=== PATIENT | male | born 1990 | race Caucasian/White ===

== ENCOUNTER 2020-10-12 22:32 | Emergency (ER) | payer OTHER ==
[~2020-10-12] VITALS: Ht 182.9 cm; Wt 75.0 kg
--- NOTE | 2020-10-12 23:09 | ED.ADGEN ---
Past Medical History Past Surgical History: No Surgical History Smoking Status: Never Smoker Alcohol Use: Occasionally General Adult EDM: Chief Complaint: DIZZY/LIGHT HEADED HPI: HPI: Patient is a 30 year old male coming in for near syncopal episode while at a sporting event. Patient states he had been standing in the bleachers most the time he drinks a few beers when he started to feel little lightheaded. Went to sit down and had episode of blurred vision and faintness. Never passed out or lost consciousness. The medical aid personnel were nearby assessing other patient with a assessed him and convince him to come to the ER via EMS for further evaluation. Was given a 500 mL normal saline in route via EMS and states he feels back to normal now. Denies any past medical history. Has not had any chest pain. Has a history of vasovagal syncope in the past. No family history of sudden or cardiac disease. Review of Systems: Review of Systems: All other systems within normal limits except for as noted in the HPI Allergies: Allergies: Allergies Coded Allergies Type Severity Reaction Last Updated Verified No Known Drug Allergies 10/12/20 No Physical Exam: PE: Constitutional: Well developed, well nourished, no acute distress, non-toxic appearance. [] HENT: Normocephalic, atraumatic, bilateral external ears normal, nose normal. [] Eyes: PERRLA, conjunctiva normal, no discharge. [] Neck: No rigidity, supple, no stridor. [] Cardiovascular: Regular rate and rhythm, brisk cap refill [] Lungs & Thorax: Non labored symmetric respirations, no tachypnea or respiratory distress [] Abdomen: Soft, nondistended, no tenderness, no pulsatile masses. Skin: Warm, dry, no erythema, no rash. [] Back: Unremarkable Extremities: No deformities, range of motion grossly intact, no lower extremity edema [] Neurologic: Alert and oriented X 3, no focal deficits noted. [] Psychologic: Affect normal, judgement normal, mood normal. [] Current Patient Data: Vital Signs: Vital Signs Date Time Temp Pulse Resp B/P (MAP) Pulse Ox O2 Delivery O2 Flow Rate FiO2 10/12/20 22:47 97.7 61 12 118/58 100 Room Air 97.7 EKG: EKG: Sinus rhythm, heart rate 53 bpm, no ST elevation or depression, normal axis [] Heart Score: C/O Chest Pain: No Risk Factors: Risk Factors: DM, Current or recent (<one month) smoker, HTN, HLP, family history of CAD, obesity. Risk Scores: Score 0 - 3: 2.5% MACE over next 6 weeks - Discharge Home Score 4 - 6: 20.3% MACE over next 6 weeks - Admit for Clinical Observation Score 7 - 10: 72.7% MACE over next 6 weeks - Early Invasive Strategies Radiology/Procedures: Radiology/Procedures: [] Course & Med Decision Making: Course & Med Decision Making Pertinent Labs and Imaging studies reviewed. (See chart for details) [] Dragon Disclaimer: Dragon Disclaimer: This electronic medical record was generated, in whole or in part, using a voice recognition dictation system. Departure Departure Impression: Primary Impression: Near syncope Disposition: 01 HOME / SELF CARE / HOMELESS Condition: STABLE Patient Instructions: Near-Syncope JUNIOR GIBBONS MD Oct 12, 2020 23:09
[2020-10-13 00:17] VITALS: BP 113/55
--- NOTE | 2020-10-14 02:02 | EKG ---
[facility] [address] [place] [id number] Test Date: 2020-10-12 Test Time: 22:48:34 Pat Name: BRITTA GILLIAM Department: Room: Gender: M [employer]ing [employer]: : 1990 Requested By: JUNIOR GIBBONS Order Number: [id number] Reading MD: Measurements Intervals [place] Rate: 53 P: 43 IN: 196 QRS: 72 QRSD: 114 T: 33 QT: 408 QTc: 385 Interpretive Statements SINUS RHYTHM ATRIAL PREMATURE COMPLEX(ES) INCOMPLETE RIGHT BUNDLE BRANCH BLOCK OTHERWISE NORMAL ECG RI6.02 No previous ECG available for comparison
== END 2020-10-13 00:15 | disposition home or self-care (01) ==
LOC: ER 22:32
DX: R55 Syncope and collapse (principal)
CPT/HCPCS: 82962; 93005; 99283